=== PATIENT | female | born 1955 | race Two or more races ===

== ENCOUNTER 2025-07-18 08:10 | Inpatient (IN) | payer MEDICAID, OTHER ==
[~2025-07-18] VITALS: Ht 162.6 cm; Wt 97.0 kg
--- NOTE | 2025-07-18 08:18 | ED.PDOC ---
History of Present Illness HPI Comments 70-year-old female brought by paramedics because family found her altered this morning. They called the paramedics when paramedics arrived the blood sugar was 47. She was not answering any questions. She was given D10 250 mL for which blood sugar kumar to 133. She was alert and oriented on arrival to the ER. She does have a history of hypotension and diabetes for which she takes insulin. She does have chronic bilateral lower extremity swelling. Denies shortness a breath. Denies chest pain. Denies any other symptoms. Time Seen by MD: 08:14 Reviewed Notes: Nurses Notes, Medications, Allergies Allergies: Coded Allergies: NO KNOWN ALLERGIES (Unverified , 07/18/25) Information Source: Patient, Emergency Med Personnel Mode of Arrival: EMS Severity: Moderate Timing: Hours Duration: Since onset Past Medical History PAST MEDICAL HISTORY: DM, HTN Surgical History: Denies all surgeries EDITOR PRODUCER History: No Pertinent EDITOR PRODUCER History Social History Smoker: Non-Smoker Alcohol: Denies ETOH Use Drugs: Denies Drug Use Constitutional: denies: chills, diaphoresis, fatigue, fever, malaise, sweats, weakness, others EENTM: denies: blurred vision, double vision, ear bleeding, ear discharge, ear drainage, ear pain, ear ringing, eye pain, eye redness, hearing loss, mouth pain, mouth swelling, nasal discharge, nose bleeding, nose congestion, nose pain, photophobia, tearing, throat pain, throat swelling, voice changes, others Respiratory: denies: cough, hemoptysis, orthopnea, SOB at rest, shortness of breath, SOB with excertion, stridor, wheezing, others Cardiovascular: denies: chest pain, dizzy spells, diaphoresis, Dyspnea on exertion, edema, irregular heart beat, left arm pain, lightheadedness, palpitations, PND, syncope, others Gastrointestinal: denies: abdomen distended, abdominal pain, blood streaked bowels, constipated, diarrhea, dysphagia, difficulty swallowing, hematemesis, melena, nausea, poor appetite, poor fluid intake, rectal bleeding, rectal pain, vomiting, others Genitourinary: denies: abnormal vagina bleeding, burning, dyspareunia, dysuria, flank pain, frequency, hematuria, incontinence, pain, , vagina discharg e, urgency, others Neurological: denies: dizziness, fainting, headache, left sided numbness, left sided weakness, numbness, paresthesia, pre-existing deficit, right sided numbness, right sided weakness, seizure, speech problems, tingling, tremors, weakness, others Musculoskeletal: denies: back pain, gout, joint pain, joint swelling, muscle pain, muscle stiffness, neck pain, others Integumetry: denies: bruises, change in color, change in hair/nails, dryness, laceration, lesions, lumps, rash, wounds, others Allergic/Immunocompromised: denies: Difficulty Healing, Frequent Infections, Hives, Itching, others Hematologic/Lymphatic: denies: anemia, blood clots, easy bleeding, easy bruising, swollen glands, others Endocrine: denies: excessive hunger, excessive sweating, excessive thirst, excessive urination, flushing, intolerance to cold, intolerance to heat, unexplained weight gain, unexplained weight loss, others Psychiatric: denies: anxiety, bipolar disorder, depression, hopeless, panic d isorder, schizophrenia, sleepless, suicidal, others Unable to Obtain due to: Altered Mental Status Physical Exam General Appearance: Moderate Distress HEENT: Normal ENT Inspection, Pharynx Normal, TMs Normal Neck: Full Range of Motion, Non-Tender, Normal, Normal Inspection Respiratory: Chest Non-Tender, Lungs Clear, No Accessory Muscle Use, No Respiratory Distress, Normal Breath Sounds Cardiovascular: No Edema, No JVD, No Murmur, No Gallop, Normal Peripheral Pulses, Regular Rate/Rhythm Breast Exam: Deferred Gastrointestinal: No Organomegaly, Non Tender, No Pulsatile Mass, Normal Bowel Sounds, Soft Genitalia: Deferred Pelvic: Deferred Rectal: Deferred Extremities: Swelling (Bilateral lower extremity) Musculoskeletal : Apperance: Normal Neurologic: Alert, case management assistant II-XII nml as Tested, No Motor Deficits, Normal Affect, Normal Mood, No Sensory Deficits Cerebellar Function: NOT DONE Reflexes: NOT DONE Skin: Normal Color Peripheral Pulses: 3+ Radial (R), 3+ Radial (L) Lymphatic: No Adenopathy Was a procedure done? Was a procedure done?: No Differential Dx Considerations may include: Hypoglycemia Electrolyte imbalance X-Ray, Labs, Meds, VS Vital Signs Date Time Temp Pulse Resp B/P (MAP) Pulse Ox O2 Delivery O2 Flow Rate FiO2 07/18/25 13:00 71 14 126/60 (82) 99 07/18/25 11:00 72 19 121/61 (81) 98 07/18/25 09:00 76 21 128/60 (82) 96 07/18/25 08:39 99.5 78 16 109/73 98 99.5 Lab Test 07/18/25 13:39 07/18/25 13:01 07/18/25 11:40 07/18/25 11:29 Range/Units POC Glucose 70 95 168 H 70-106 mg/dl Troponin I High Sensitivity 5 </=34 ng/L Test 07/18/25 10:34 07/18/25 10:31 07/18/25 09:32 07/18/25 09:10 Range/Units POC Glucose 40 *L 43 *L 110 H 70-106 mg/dl Troponin I High Sensitivity 4 </=34 ng/L Test 07/18/25 08:49 07/18/25 08:34 Range/Units Urine Color Light-yellow Yellow Urine Clarity Cloudy H Clear Urine pH 6.0 5.0-9.0 Urine Specific [place] 1.006 1.001-1.035 Urine Protein Negative Negative Urine Ketones Negative Negative Urine Blood 3+ H Negative /uL Urine Nitrite Negative Negative Urine Bilirubin Negative Negative Urine Urobilinogen Normal Negative mg/dL Urine Leukocyte Esterase 3+ Negative /uL Urine RBC 16 0 - 4 /hpf Urine WBC Clumps Present None Seen /hpf Urine Microscopic WBC 897 H 0-5 /HPF Urine Squamous Epithelial Cells None seen <5 /hpf Urine Bacteria Few H None Seen /hpf Urine Glucose Normal Normal mg/dL White Blood Count 9.4 4.4-10.8 10^3/uL Red Blood Count 3.63 L 4.0-5.20 10^6/uL Hemoglobin 10.4 L 12.2-16.2 g/dL Hematocrit 31.5 L 36.0-46.0 % Mean Corpuscular Volume 86.9 80.0-100.0 fL Mean Corpuscular Hemoglobin 28.6 28.0-32.0 pg Mean Corpuscular Hemoglobin Concent 32.9 32.0-36.0 g/dL Red Cell Distribution Width 15.1 H 11.8-14.3 % Platelet Count 125 L 140-450 10^3/uL Mean Platelet Volume 7.6 6.9-10.8 fL Neutrophils (%) (Auto) 83.1 H 37.0-80.0 % Lymphocytes (%) (Auto) 9.4 L 10.0-50.0 % Monocytes (%) (Auto) 6.8 0.0-12.0 % Eosinophils (%) (Auto) 0.4 0.0-7.0 % Basophils (%) (Auto) 0.3 0.0-2.0 % Neutrophils # (Auto) 7.8 1.6-8.6 10 ^3/uL Lymphocytes # (Auto) 0.9 0.4-5.4 10 ^3/uL Monocytes # (Auto) 0.6 0-1.3 10 ^3/uL Eosinophils # (Auto) 0 0-0.8 10 ^3/uL Basophils # (Auto) 0 0-0.2 10 ^3/uL Nucleated Red Blood Cells 0.1 % Sodium Level 140 136-145 mmol/L Potassium Level 3.5 3.5-5.1 mmol/L Chloride Level 111 H 98-107 mmol/L Carbon Dioxide Level 18 L 20-31 mmol/L Anion Gap 11 5-15 Blood Urea Nitrogen 20 9-23 mg/dL Creatinine 2.06 H 0.550-1.02 mg/dL Glomerular Filtration Rate Calc 26 >90 mL/min BUN/Creatinine Ratio 9.7 L 10.0-20.0 Serum Glucose 83 74-106 mg/dL Calcium Level 7.8 L 8.7-10.4 mg/dL Troponin I High Sensitivity 4 </=34 ng/L B-Type Natriuretic Peptide 41.15 0-100 pg/mL Current Medications Medications (Trade) Dose Ordered Sig/Sarah Route Start Time Stop Time Status Last Admin Dextrose 1,000 ml @ 50 mls/hr Q20H ONCE IV 07/18/25 10:45 07/18/25 14:28 DC 07/18/25 11:02 Dextrose 50 ml ONCE ONCE IV 07/18/25 11:15 07/18/25 11:17 DC 07/18/25 11:20 Ondansetron HCl (Zofran) 4 mg ONCE ONCE IV 07/18/25 14:15 07/18/25 14:29 DC 07/18/25 14:39 Sodium Chloride 1,000 ml @ 60 mls/hr [id number] IV 07/18/25 14:15 07/18/25 15:10 Ceftriaxone Sodium 50 ml @ 100 mls/hr DAILY IV 07/18/25 14:15 07/18/25 15:10 Azithromycin 250 ml @ 125 mls/hr DAILY IV 07/18/25 14:15 07/18/25 15:[address] [address] Ph: [phone] DIAGNOSTIC IMAGING Diagnostic Imaging Report : [id number] Signed PATIENT: ALANIS DAVIS ACCT: [id number] UNIT: [id number] : 1955 LOC: ER ROOM / BED: / AGE / SEX: 70 / F ADM STATUS: REG ER SERVICE 2 ORDERING PHYSICIAN: RADHA DUFFY MD PROCEDURE(s): CXRP - CHEST PORTABLE REASON: sob ORDER NUMBER(s): [id number], ACCESSION NUMBER(s): [id number] CHEST RADIOGRAPH Indication: Sob. Technique: Single frontal view of the chest was obtained Comparison: None FINDINGS: Lines and Tubes: None Lungs: There is a focal opacity in the right upper lobe. The left lung is clear. Pleura: No effusion. No pneumothorax. Cardiomediastinal contours: Unremarkable Bones: No acute osseous abnormality. IMPRESSION: 1. Focal opacity in the right upper lobe which may represent pneumonia. ATED BY: ELTON NICOLE MD DICTATED DATE/TIME: 07/18/25907 SIGNED BY: ELTON NICOLE MD SIGNED DATE/TIME: 07/18/25907 CC: Patient alert. Came in because of altered level of consciousness. Blood sugar was low in the field. Vitals stable. Was given D10. She is mentating well after her blood sugar normalized. She does have bilateral lower extremity swelling. Saturation pristine on room air. Explained to the patient that she will possibly admitted to find out why she went hypoglycemic. Continue monitoring. Time of 1ST Reevaluation: 08:17 Reevaluation 1ST: Unchanged Patient Education/Counseling: Diagnosis, Treatment, Prognosis Family Education/Counseling: No Family Present SEPSIS Sepsis Screen Physician Orders Chest Portable (07/18/25 08:23) Code Status (07/18/25 14:05) 2 Gm Sodium Diet (07/18/25 Dinner) Sodium Chloride Lock (Saline Lock Ns) (07/18/25 22:00) Sodium Chloride 0.9% (07/18/25 14:15) Ondansetron Hcl (Zofran) (07/18/25 14:15) Enoxaparin Sodium (Lovenox) (07/19/25 10:00) Complete Blood Count (07/19/25 04:00) Comprehensive Metabolic Panel (07/19/25 04:00) Nitroglycerin Sublingual (Ntrostat Subli (07/18/25 14:15) Morphine Sulfate Injection (07/18/25 14:15) Oxygen By Nasal Cannula (07/18/25 14:05) Stat Ekg For Chest Pain (07/18/25 14:05) Notify Of Changes From Base (07/18/25 14:05) Cardiology Physician Assistant For 24 Hours (07/18/25 14:05) Emergency Dysrhythmia Protocol (07/18/25 14:05) Rhythm Strips Once Every Shift (07/18/25 14:05) Ceftriaxone 1gm/50ml (Rocephin) (07/18/25 14:15) Azithromycin 500mg/ 250ml (Zithromax 50 (07/18/25 14:15) Glucose Blood (Accu-Chek Comfort Curve T (07/18/25 17:00) Insulin R (Human) (Insulin R) (07/18/25 17:00) Dextrose 50% Syringe (07/18/25 14:15) Hydralazine Injection (Apresoline Inject (07/18/25 14:15) Urine Bacterial Culture (07/18/25 14:05) Admit (07/18/25 14:16) Vital Signs Date Time Temp Pulse Resp B/P (MAP) Pulse Ox O2 Delivery O2 Flow Rate FiO2 07/18/25 13:00 71 14 126/60 (82) 99 07/18/25 11:00 72 19 121/61 (81) 98 07/18/25 09:00 76 21 128/60 (82) 96 07/18/25 08:39 99.5 78 16 109/73 98 99.5 Laboratory Tests Test 07/18/25 08:34 White Blood Count 9.4 10^3/uL (4.4-10.8) Medications Medications Dose Ordered Sig/Sarah Route Start Time Stop Time Status Last Admin Dose Admin Azithromycin 250 ml @ 125 mls/hr DAILY IV 07/18/25 14:15 07/18/25 15:35 Ceftriaxone Sodium 50 ml @ 100 mls/hr DAILY IV 07/18/25 14:15 07/18/25 15:10 Dextrose 50 ml ONCE ONCE IV 07/18/25 11:15 07/18/25 11:17 DC 07/18/25 11:20 Dextrose 1,000 ml @ 50 mls/hr Q20H ONCE IV 07/18/25 10:45 07/18/25 14:28 DC 07/18/25 11:02 Ondansetron HCl 4 mg ONCE ONCE IV 07/18/25 14:15 07/18/25 14:29 DC 07/18/25 14:39 Sodium Chloride 1,000 ml @ 60 mls/hr [id number] IV 07/18/25 14:15 07/18/25 15:10 Departure 1 Departure Time of Disposition: 08:18 Impression: Primary Impression: Hypoglycemia Additional Impression: Sepsis due to urinary tract infection Disposition: ADMITTED INPATIENT Admit to: Med Surg Condition: Guarded Critical Care Note Critical Care Time?: Yes (90 min-critical care time only) Stability Stability form required: No Heart Score Heart Score: Heart Score Response (Comments) Value History Slightly Suspicious 0 EKG Normal 0 Age >65 2 Risk Factors >3 or Hx ASHD 2 Troponin Normal limit 0 Total 4 I personally scribed for RADHA DUFFY MD ([email or web address]) on 07/18/25 at 10:33. Electronically submitted by Rao Collins [email or web address]). RADHA DUFFY MD Jul 18, 2025 08:18
[2025-07-18 08:45] LABS: Hematocrit 31.5 % (36.0-46.0); Hemoglobin 10.4 g/dL (12.2-16.2); Mean Corpuscular Hemoglobin 28.6 pg (28.0-32.0); Mean Corpuscular Volume 86.9 fL (80.0-100.0); Nucleated Red Blood Cells % 0.1 %
[2025-07-18 08:46] VITALS: PULSE 79; RESP 22; O2SAT 97
[2025-07-18 08:52] LABS: Potassium 3.5 mmol/L (3.5-5.1); Sodium 140 mmol/L (136-145)
[2025-07-18 08:53] LABS: Anion Gap 11 (5-15)
[2025-07-18 08:57] LABS: Calcium 7.8 mg/dL (8.7-10.4); Carbon Dioxide 18 mmol/L (20-31); Chloride 111 mmol/L (98-107)
[2025-07-18 08:58] LABS: BUN/Creatinine Ratio 9.7 (10.0-20.0); Blood Urea Nitrogen 20 mg/dL (9-23); Glucose 83 mg/dL (74-106)
[2025-07-18 09:03] LABS: Urine Protein, UAD Negative (Negative); Urine WBC Clumps PRESENT /hpf (None Seen)
--- NOTE | 2025-07-18 09:11 | DVH ---
CHEST RADIOGRAPH Indication: Sob. Technique: Single frontal view of the chest was obtained Comparison: None FINDINGS: Lines and Tubes: None Lungs: There is a focal opacity in the right upper lobe. The left lung is clear. Pleura: No effusion. No pneumothorax. Cardiomediastinal contours: Unremarkable Bones: No acute osseous abnormality. IMPRESSION: 1. Focal opacity in the right upper lobe which may represent pneumonia.
[2025-07-18] MEDS: DEXTROSE 10% 1,000 ML IV ONE ×2 (11:02→14:30)
[2025-07-18] MEDS: DEXTROSE 50% SYRINGE 50 ML IV ONE (11:19)
[2025-07-18] MEDS: DEXTROSE (50%) 50ML SYRG IV ONE (11:20)
--- NOTE | 2025-07-18 14:11 | DVHHPRES ---
History of Present Illness Resident Creating Document: CATINA MONTOYA RESIDENT History of Present Illness 70-year-old female brought by paramedics because family found her altered this morning. They called the paramedics when paramedics arrived the blood sugar was 47. She was not answering any questions. She was given D10 250 mL for which blood sugar kumar to 133. She was alert and oriented on arrival to the ER. She does have a history of hypotension and diabetes for which she takes insulin. She does have chronic bilateral lower extremity swelling. Denies shortness a breath. Denies chest pain. Denies any other symptoms. Past Medical History Dm, HTN Review of Systems Review of Systems ROS: Unable to Obtain due to: Altered Mental Status Allergies: Coded Allergies: NO KNOWN ALLERGIES (Unverified , 07/18/25) Exam Vital Signs Vital Signs Date Time Temp Pulse Resp B/P (MAP) Pulse Ox O2 Delivery O2 Flow Rate FiO2 07/18/25 08:39 99.5 78 16 109/73 98 99.5 Exam GENERAL: In mild distress HEENT: EOMI, Moist mucous membranes. No scleral icterus. No cervical lymphadenopathy. LUNGS: Breath sound diminished steroid side. No accessory muscle use. CARDIOVASCULAR: Regular rate and rhythm. No murmur. No JVD. ABDOMEN: Soft, nontender and nondistended. No palpable masses. EXTREMITIES: Bilateral lower extremity edema SKIN: No rashes or lesions. Warm. NEUROLOGIC: Alert and oriented X3 Labs/Xrays Labs Test 07/18/25 13:39 07/18/25 11:40 07/18/25 08:49 07/18/25 08:34 Range/Units POC Glucose 70 70-106 mg/dl Troponin I High Sensitivity 5 </=34 ng/L Urine Color Light-yellow Yellow Urine Clarity Cloudy H Clear Urine pH 6.0 5.0-9.0 Urine Specific [place] 1.006 1.001-1.035 Urine Protein Negative Negative Urine Ketones Negative Negative Urine Blood 3+ H Negative /uL Urine Nitrite Negative Negative Urine Bilirubin Negative Negative Urine Urobilinogen Normal Negative mg/dL Urine Leukocyte Esterase 3+ Negative /uL Urine RBC 16 0 - 4 /hpf Urine WBC Clumps Present None Seen /hpf Urine Microscopic WBC 897 H 0-5 /HPF Urine Squamous Epithelial Cells None seen <5 /hpf Urine Bacteria Few H None Seen /hpf Urine Glucose Normal Normal mg/dL White Blood Count 9.4 4.4-10.8 10^3/uL Red Blood Count 3.63 L 4.0-5.20 10^6/uL Hemoglobin 10.4 L 12.2-16.2 g/dL Hematocrit 31.5 L 36.0-46.0 % Mean Corpuscular Volume 86.9 80.0-100.0 fL Mean Corpuscular Hemoglobin 28.6 28.0-32.0 pg Mean Corpuscular Hemoglobin Concent 32.9 32.0-36.0 g/dL Red Cell Distribution Width 15.1 H 11.8-14.3 % Platelet Count 125 L 140-450 10^3/uL Mean Platelet Volume 7.6 6.9-10.8 fL Neutrophils (%) (Auto) 83.1 H 37.0-80.0 % Lymphocytes (%) (Auto) 9.4 L 10.0-50.0 % Monocytes (%) (Auto) 6.8 0.0-12.0 % Eosinophils (%) (Auto) 0.4 0.0-7.0 % Basophils (%) (Auto) 0.3 0.0-2.0 % Neutrophils # (Auto) 7.8 1.6-8.6 10 ^3/uL Lymphocytes # (Auto) 0.9 0.4-5.4 10 ^3/uL Monocytes # (Auto) 0.6 0-1.3 10 ^3/uL Eosinophils # (Auto) 0 0-0.8 10 ^3/uL Basophils # (Auto) 0 0-0.2 10 ^3/uL Nucleated Red Blood Cells 0.1 % Sodium Level 140 136-145 mmol/L Potassium Level 3.5 3.5-5.1 mmol/L Chloride Level 111 H 98-107 mmol/L Carbon Dioxide Level 18 L 20-31 mmol/L Anion Gap 11 5-15 Blood Urea Nitrogen 20 9-23 mg/dL Creatinine 2.06 H 0.550-1.02 mg/dL Glomerular Filtration Rate Calc 26 >90 mL/min BUN/Creatinine Ratio 9.7 L 10.0-20.0 Serum Glucose 83 74-106 mg/dL Calcium Level 7.8 L 8.7-10.4 mg/dL B-Type Natriuretic Peptide 41.15 0-100 pg/mL SEPSIS Sepsis Screen Date sepsis recognized/suspect: Jul 18, 2025 Time Sepsis recognized/suspect: 0810 Recent Procedure: No On Antibiotic Therapy: No Respiratory Rate >20: No Heart Rate >90: No Temp<36 C (96.8 F) or >38.3 C: No SBP <90 or MAP <65 mmHG: No New Acute Mental Status Change: No Is the patient on CPAP, BIPAP,: No Physician Orders Chest Portable (07/18/25 08:23) Dextrose 10% (07/18/25 10:45) Ondansetron Hcl (Zofran) (07/18/25 14:15) Lorazepam 2mg/Ml Inj (Ativan Inj) (07/18/25 14:15) Admit (07/18/25 14:05) Code Status (07/18/25 14:05) 2 Gm Sodium Diet (07/18/25 Dinner) Sodium Chloride Lock (Saline Lock Ns) (07/18/25 22:00) 0.9% Ns 1000 Ml (07/18/25 14:15) Ondansetron Hcl (Zofran) (07/18/25 14:15) Enoxaparin Sodium (Lovenox) (07/19/25 10:00) Complete Blood Count (07/19/25 04:00) Comprehensive Metabolic Panel (07/19/25 04:00) Nitroglycerin Sublingual (Ntrostat Subli (07/18/25 14:15) Morphine Sulfate Injection (07/18/25 14:15) Oxygen By Nasal Cannula (07/18/25 14:05) Stat Ekg For Chest Pain (07/18/25 14:05) Notify Of Changes From Base (07/18/25 14:05) Global Process Owner For 24 Hours (07/18/25 14:05) Emergency Dysrhythmia Protocol (07/18/25 14:05) Rhythm Strips Once Every Shift (07/18/25 14:05) Ceftriaxone Ivpb Rocephin (07/18/25 14:15) Azithromycin 500mg/ 250ml (Zithromax 50 (07/18/25 14:15) Glucose Blood (Accu-Chek Comfort Curve T (07/18/25 17:00) Mild Sliding Scale (07/18/25 17:00) Dextrose 50% Syringe (07/18/25 14:15) Hydralazine Injection (Apresoline Inject (07/18/25 14:15) Urine Bacterial Culture (07/18/25 14:05) Vital Signs Date Time Temp Pulse Resp B/P (MAP) Pulse Ox O2 Delivery O2 Flow Rate FiO2 07/18/25 08:39 99.5 78 16 109/73 98 99.5 Laboratory Tests Test 07/18/25 08:34 White Blood Count 9.4 10^3/uL (4.4-10.8) Medications Medications Dose Ordered Sig/Sarah Route Start Time Stop Time Status Last Admin Dose Admin Dextrose 50 ml ONCE ONCE IV 07/18/25 11:15 07/18/25 11:17 DC 07/18/25 11:20 50 ML Dextrose 1,000 ml @ 50 mls/hr Q20H ONCE IV 07/18/25 10:45 07/19/25 06:44 07/18/25 11:02 50 MLS/HR Assessment/Plan Assessment/Plan # metabolic encephalopathy due to hypoglycemia # hypoglycemia # possible Gram-positive/negative bacterial pneumonia # community-acquired pneumonia # complicated cystitis # diabetes type 2 # hypertension - on admission blood glucose level was 40 - patient got 10% dextrose - monitor blood glucose level - sliding scale insulin for diabetes - start empiric antibiotic Rocephin and azithromycin - ordered urine culture and blood culture - follow up labs Goals of care unable to discuss : Full code for now Plan discussed with Dr. Tineo Plan discussed with: Other (RN) My Orders Orders - CATINA MONTOYA RESIDENT Procedure Category Date Status Time Admit ADMIT 07/18/25 Verified 14:05 Code Status CODE 07/18/25 Verified 14:05 2 Gm Sodium Diet DIET 07/18/25 Verified Dinner Sodium Chloride Lock PHA 07/18/25 Verified (Saline Lock Ns) 22:00 0.9% Ns 1000 Ml PHA 07/18/25 Verified 14:15 Ondansetron Hcl PHA 07/18/25 Verified (Zofran) 14:15 Enoxaparin Sodium PHA 07/19/25 Verified (Lovenox) 10:00 Complete Blood Count LAB 07/19/25 Verified 04:00 Comprehensive LAB 07/19/25 Verified Metabolic Panel 04:00 Nitroglycerin PHA 07/18/25 Verified Sublingual (Ntrostat 14:15 Morphine Sulfate PHA 07/18/25 Verified Injection 14:15 Oxygen By Nasal RT 07/18/25 Verified Cannula 14:05 Stat Ekg For Chest [facility] 07/18/25 Verified Pain 14:05 Notify Md Of Changes [facility] 07/18/25 Verified From Base 14:05 Global Process Owner For [facility] 07/18/25 Verified 24 Hours 14:05 Emergency Dysrhythmia [facility] 07/18/25 Verified Protocol 14:05 Rhythm Strips Once [facility] 07/18/25 Verified Every Shift 14:05 Ceftriaxone Ivpb PHA 07/18/25 Verified Rocephin 14:15 Azithromycin 500mg/ PHA 07/18/25 Verified 250ml (Zithromax 50 14:15 Glucose Blood PHA 07/18/25 Verified (Accu-Chek Comfort 17:00 Mild Sliding Scale PHA 07/18/25 Verified 17:00 Dextrose 50% Syringe PHA 07/18/25 Verified 14:15 Hydralazine Injection [facility] 07/18/25 Verified (Apresoline Inject 14:15 Urine Bacterial TARUN 07/18/25 Verified Culture 14:05 Common Visit Codes: 04377-[id number] INP/OBS CARE (HIGH) Secondary Visit Codes: [id number] CARE PLAN 30 MINUTES CATINA MONTOYA RESIDENT Jul 18, 2025 14:11
[2025-07-18] MEDS: ONDANSETRON HCL 4 MG/2 ML VIAL ONE (14:13)
[2025-07-18] MEDS ORDERED: DEXTROSE (50%) 50ML SYRG IV PRN (14:15)
[2025-07-18] MEDS ORDERED: ONDANSETRON HCL 4 MG/2 ML VIAL IV PRN (14:15)
[2025-07-18] MEDS ORDERED: MORPHINE SULFATE INJ 2 MG/ml SYRG IV PRN (14:15)
[2025-07-18] MEDS ORDERED: hydrALAZINE HCL 20 MG/ML VL IV PRN (14:15)
[2025-07-18] MEDS ORDERED: NITROGLYCERIN 0.4 MG SL TAB SL PRN (14:15)
[2025-07-18] MEDS: ONDANSETRON HCL 4 MG/2 ML VIAL IV ONE (14:39)
[2025-07-18] MEDS: LORazepam 2MG/ML-1ML VIAL IV ONE (14:40)
[2025-07-18] MEDS: SODIUM CHLORIDE 0.9% 1,000 ML IV SCH (15:10)
[2025-07-18] MEDS: AZITHROMYCIN 500MG/ 250ML 250 ML IV SCH (15:35)
[2025-07-18 16:41] VITALS: BP 113/62; PULSE 77; RESP 16; TEMP 98.2; O2SAT 99
[2025-07-18] MEDS: InsuLIN REG 1unit/0.01ml Soln (100units/ml) SC SCH (17:00)
[2025-07-18] MEDS: ACCU-CHEK COMFORT CURVE STRIP VI SCH (18:04)
[2025-07-18] MEDS ORDERED: GLIP10TA9 PO (18:17)
[2025-07-18 20:00] VITALS: PULSE 75; RESP 19; O2SAT 100
[2025-07-18 21:00] VITALS: BP 114/58; PULSE 75; RESP 18; TEMP 97.1; O2SAT 100
[2025-07-18] MEDS: SODIUM CHLOR 0.9% PF (SALINE LOCK) 10ML VIAL/SYR IV SCH (22:25)
[2025-07-19 01:00] VITALS: BP_SYST 106; BP_SYST 109; BP_DIAS 51; BP_DIAS 65; PULSE 58; PULSE 67; RESP 18; RESP 19; TEMP 97.1; TEMP 97.2; O2SAT 95; O2SAT 98
[2025-07-19 05:00] VITALS: BP 107/60; PULSE 66; RESP 18; TEMP 97.3; O2SAT 100
[2025-07-19 08:50] VITALS: BP 100/55; PULSE 74; RESP 18; TEMP 98.3; O2SAT 99
[2025-07-19] MEDS: ENOXAPARIN SOD 40 MG/0.4 ML SYRINGE SC SCH (08:58)
[2025-07-19 10:24] LABS: Hematocrit 31.5 % (36.0-46.0); Hemoglobin 10.5 g/dL (12.2-16.2); Mean Corpuscular Hemoglobin 29.6 pg (28.0-32.0); Mean Corpuscular Volume 88.7 fL (80.0-100.0); Nucleated Red Blood Cells % 0.1 %
[2025-07-19] MEDS ORDERED: BACDST PO (10:42)
[2025-07-19 10:52] LABS: Alanine Aminotransferase 38 U/L (7-40); Alkaline Phosphatase 107 U/L (46-116); Anion Gap 8 (5-15); BUN/Creatinine Ratio 6.3 (10.0-20.0); Bilirubin, Total 0.4 mg/dL (0.2-1.0); Blood Urea Nitrogen 10 mg/dL (9-23); Carbon Dioxide 21 mmol/L (20-31); Potassium 4.0 mmol/L (3.5-5.1); Sodium 141 mmol/L (136-145)
[2025-07-19 10:56] LABS: Albumin 2.4 g/dL (3.2-4.8); Calcium 7.4 mg/dL (8.7-10.4); Chloride 112 mmol/L (98-107); Glucose 138 mg/dL (74-106); Total Protein 5.3 g/dL (5.7-8.2)
[2025-07-19] MEDS: HYDROcodone-ACET 5/325MG TAB PO ONE (11:32)
[2025-07-19 12:01] VITALS: TEMP 36.8
[2025-07-19 12:43] VITALS: BP 111/54; PULSE 79; RESP 18; TEMP 97.8; O2SAT 100
--- NOTE | 2025-07-19 13:46 | DVH ---
Upper Extremity Venous Duplex Clinical History: R/O DVT, ABX infiltration Comparison: None Technique: Duplex Doppler evaluation of the venous system of the left lower neck and upper extremity including c olor Doppler and spectral/pulsed waveform analysis was performed. Findings: The internal jugular vein demonstrates appropriate compressibility and waveform variability. The subclavian vein is patent on color Doppler evaluation without intraluminal thrombus and demonstra johny waveform variability. The visualized portion of the brachiocephalic vein is patent on color Doppler evaluation without intr aluminal thrombus and demonstrates waveform variability. The axillary vein demonstrates appropriate compressibility and waveform variability. The brachial veins demonstrate appropriate compressibility and patency on Doppler evaluation. The basilic vein demonstrates appropriate compressibility and patency on Doppler evaluation. The cephalic vein demonstrates no compressibility or flow and findings are consistent with thrombosis of the cephalic vein. Impression: 1. Thrombosis of the left cephalic vein. 2. If clinical concern/symptoms persist or worsen, short-interval follow-up study is suggested.
== END 2025-07-19 14:15 | disposition home or self-care (01) | DRG 637 ==
LOC: ER 08:10 → EDUNIT# 08:10 → EDBD 08:10 → OVERFLOW 14:05 → UNDOADMIN 14:05 → OVERFLOW 14:16 → WEST WING 16:37
PROVIDERS: ADMIT Internal Medicine; ATTEND Emergency Medicine
DX: E11.649 Type 2 diabetes mellitus with hypoglycemia without coma (principal); G93.41 Metabolic encephalopathy; J15.69 Pneumonia due to other Gram-negative bacteria; J15.9 Unspecified bacterial pneumonia; N30.90 Cystitis, unspecified without hematuria; I10 Essential (primary) hypertension; Z79.4 Long term (current) use of insulin; Z79.899 Other long term (current) drug therapy
CPT/HCPCS: 36415; 71045; 80048; 80053; 81001; 82962; 83880; 84484; 85025; 87081; 87086; 93971; 96365; 96375; 99291; 99292; G0378; J1815; J2405